=== PATIENT | female | born 1955 | race Two or more races ===

== ENCOUNTER 2020-09-02 11:45 | Inpatient (IN) | payer OTHER ==
[~2020-09-02] VITALS: Ht 154.9 cm; Wt 72.6 kg
[2020-09-03] MEDS ORDERED: SYNTHROID100 MCG (13:05)
[2020-09-03] MEDS ORDERED: TANDEM PLUS CA1 EACH (13:05)
== END 2020-09-06 14:13 | disposition home or self-care (01) | DRG 741 ==
LOC: SURH 09-03 10:30 → O/R 09-03 10:56 → OB/GYN 09-03 10:56 → SURH 09-03 12:15 → OB/GYN 09-03 23:41
PROVIDERS: ADMIT Specialist; ATTEND Specialist
PROC: 0UT20ZZ Resection of Bilateral Ovaries, Open Approach (ICD-10-PCS; 2020-09-03)
PROC: 0UT70ZZ Resection of Bilateral Fallopian Tubes, Open Approach (ICD-10-PCS; 2020-09-03)
PROC: 07BC0ZZ Excision of Pelvis Lymphatic, Open Approach (ICD-10-PCS; 2020-09-03)
PROC: 0UT90ZZ Resection of Uterus, Open Approach (ICD-10-PCS; principal; 2020-09-03 10:30)
DX: D06.0 Carcinoma in situ of endocervix (principal); N80.0 Endometriosis of uterus; N94.89 Other specified conditions associated with female genital organs and menstrual cycle; N83.292 Other ovarian cyst, left side; N83.291 Other ovarian cyst, right side

== ENCOUNTER 2020-11-15 22:18 | Emergency (ER) | payer OTHER ==
[~2020-11-15] VITALS: Ht 154.9 cm; Wt 70.3 kg
[~2020-11-15 22:18] MED LIST: SYNTHROID100 MCG; TANDEM PLUS CA1 EACH
[2020-11-16] MEDS ORDERED: PEPCID20 MG PO (04:55)
[2020-11-16] MEDS ORDERED: INTESTINEX680 M1 PO (04:55)
[2020-11-16] MEDS ORDERED: ULTRACET PO (04:55)
[2020-11-16] MEDS ORDERED: LEVSIN0.125 MG PO (04:55)
== END 2020-11-16 05:04 | disposition home or self-care (01) ==
LOC: ER 22:18
DX: R10.9 Unspecified abdominal pain (principal); R19.7 Diarrhea, unspecified
CPT/HCPCS: 74177; Q9965